=== PATIENT | female | born 1940 | race Asian ===

== ENCOUNTER 2018-02-09 11:38 | Emergency (ER) | payer OTHER ==
[~2018-02-09] VITALS: Ht 157.5 cm; Wt 57.7 kg
[2018-02-09 13:11] VITALS: BP 163/67
== END 2018-02-09 13:13 | disposition home or self-care (01) ==
LOC: ED 12:42
DX: F51.01 Primary insomnia (principal); F41.9 Anxiety disorder, unspecified
CPT/HCPCS: 99281; 99284

== ENCOUNTER 2018-06-13 19:36 | Emergency (ER) | payer OTHER ==
[~2018-06-13] VITALS: Ht 160 cm; Wt 59.3 kg
[2018-06-13] MEDS ORDERED: ATOR10TA9 PO (20:09)
[2018-06-13] MEDS ORDERED: CLON2TAB9 PO (20:09)
[2018-06-13 20:16] LABS: BASOPHILS % (AUTO) 0 % (0-1); EOSINOPHILS # (AUTO) 0.05 x10^3/uL (0-0.4); EOSINOPHILS % (AUTO) 1 % (1-7); LYMPHOCYTES # (AUTO) 0.65 x10^3/uL (1-3.4); LYMPHOCYTES % (AUTO) 7 % (22-44); MD NO; MEAN CORPUSCULAR HEMOGLOBIN 28.7 pg (27.0-34.8); MEAN CORPUSCULAR HGB CONC 34.3 g/dL (32.4-35.8); MEAN CORPUSCULAR VOLUME 83.6 fL (80-100); MEAN PLATELET VOLUME 7.5 fL (7.4-10.4); MONOCYTES # (AUTO) 0.19 x10^3/uL (0.2-0.8); MONOCYTES % (AUTO) 2 % (2-9); NEUTROPHILS # (AUTO) 8.62 x10^3/uL (1.8-6.8); NEUTROPHILS % (AUTO) 91 % (42-75); PLATELET COUNT 270 x10^3/uL (130-400); RED BLOOD COUNT 4.73 x10^6/uL (3.82-5.3); RED CELL DISTRIBUTION WIDTH 14.4 % (9.6-15.2)
[2018-06-13 20:26] LABS: ALANINE AMINOTRANSFERASE 54 U/L (12-78); ALBUMIN 3.4 g/dL (3.4-5.0); ANION GAP 8 mmol/L (5-15); CALCIUM 8.2 mg/dL (8.5-10.1); CHLORIDE 106 mmol/L (98-107); CREATININE 1.15 mg/dL (0.55-1.02)
[2018-06-13 20:28] LABS: ALKALINE PHOSPHATASE 110 U/L (45-117); BILIRUBIN,TOTAL 0.5 mg/dL (0.2-1.0); TOTAL PROTEIN 7.6 g/dL (6.4-8.2)
[2018-06-13] MEDS ORDERED: SODIUM CHLORIDE FLUSH 10ML SYR IVF ONE (20:30)
[2018-06-13] MEDS ORDERED: ACETAMINOPHEN 500 MG TABLET PO ONE (20:30)
[2018-06-13] MEDS ORDERED: IBUPROFEN 200 MG TABLET PO ONE (20:30)
[2018-06-13] MEDS ORDERED: SODIUM CHLORIDE 0.9% 1,000ML IVBOLUS ONE (20:30)
[2018-06-13] MEDS ORDERED: IBUPROFEN 200 MG TABLET ONE (20:36)
[2018-06-13] MEDS ORDERED: ACETAMINOPHEN 500 MG TABLET ONE (20:37)
[2018-06-13 20:47] LABS: MICROSCOPIC INDICATED
[2018-06-13 20:50] LABS: CULTURE INDICATED? YES
[2018-06-13] MEDS ORDERED: CEFTRIAXONE 1,000 MG in SODIUM CHLORIDE 0.9% 50 ML IVPB ONE (21:00)
[2018-06-13] MEDS ORDERED: CEFTRIAXONE PMX 1GM/50ML 50 ML ONE (21:02)
[2018-06-13 22:51] VITALS: BP 121/44
[2018-06-14] MEDS ORDERED: ZOLP10TA5 PO (22:01)
== END 2018-06-13 22:53 | disposition home or self-care (01) ==
LOC: ED 22:02
DX: N10 Acute pyelonephritis (principal); I10 Essential (primary) hypertension; E86.0 Dehydration; M19.90 Unspecified osteoarthritis, unspecified site
CPT/HCPCS: 36415; 80053; 81001; 83605; 85025; 87040; 87077; 87086; 87186; 93005; 96361; 96365; 99285; J0696; J7030

== ENCOUNTER 2018-06-14 13:33 | Inpatient (IN) | payer OTHER ==
[~2018-06-14] VITALS: Ht 160 cm; Wt 62.4 kg
[~2018-06-14 13:33] MED LIST: ATOR10TA9 PO; CLON2TAB9 PO
[2018-06-14] MEDS ORDERED: CEFTRIAXONE PMX 1GM/50ML 50 ML IVPB ONE (15:00)
[2018-06-14] MEDS ORDERED: CEFTRIAXONE PMX 1GM/50ML 50 ML ONE (15:10)
[2018-06-14] MEDS ORDERED: NS + 20MEQ KCL 1,000 ML IV SCH (15:13)
[2018-06-14] MEDS ORDERED: LABETALOL 5MG/ML, 20ML IVPush PRN (15:30)
[2018-06-14] MEDS ORDERED: ONDANSETRON 2MG/ML, 2ML IVPush PRN (15:30)
[2018-06-14] MEDS ORDERED: ZOLPIDEM 5MG TABLET PO PRN (15:30)
[2018-06-14] MEDS ORDERED: ACETAMINOPHEN 325 MG TABLET PO PRN (15:30)
[2018-06-14] MEDS ORDERED: DOCUSATE 100 MG CAPSULE PO PRN (15:30)
[2018-06-14] MEDS ORDERED: IBUPROFEN 600 MG TABLET PO PRN (15:30)
[2018-06-14] MEDS ORDERED: HYDROcodone/APAP 5/325 TABLET PO PRN (15:30)
[2018-06-14] MEDS ORDERED: POLYETHYLENE GLYCOL 17 GM PACKET PO PRN (15:30)
[2018-06-14] MEDS ORDERED: SODIUM CHLORIDE FLUSH 10ML SYR IVF PRN (15:30)
[2018-06-14] MEDS ORDERED: hydrALAzine 20 MG/ML, 1ML IV PRN (15:30)
[2018-06-14] MEDS ORDERED: ENOXAPARIN 40 MG/0.4 ML ONE (16:27)
[2018-06-14] MEDS ORDERED: NS + 20MEQ KCL 1,000 ML IV ONE (16:28)
[2018-06-14] MEDS ORDERED: hydrALAzine 20 MG/ML, 1ML ONE (16:35)
[2018-06-14] MEDS: ENOXAPARIN 40 MG/0.4 ML SQ SCH (16:39)
[2018-06-14] MEDS: CEFTRIAXONE PMX 1GM/50ML 50 ML IV SCH (16:40)
[2018-06-14 17:40] VITALS: BP 194/72
[2018-06-14] MEDS: ENALAPRILAT 1.25 MG/ML, 2ML IV PRN (18:02)
[2018-06-14 18:47] VITALS: BP 167/50
[2018-06-14] MEDS: ATORVASTATIN 10 MG TABLET PO SCH (21:11)
[2018-06-14 21:33] VITALS: BP 194/72
[2018-06-14] MEDS ORDERED: ZOLP10TA5 PO (22:01)
[2018-06-14] MEDS: ZOLPIDEM 5MG TABLET PO PRN (22:19)
[2018-06-15 02:04] VITALS: BP 137/84
[2018-06-15 07:40] VITALS: BP 180/72
[2018-06-15] MEDS: SENNA/DOCUSATE TABLET PO SCH (09:00)
[2018-06-15] MEDS: METOPROLOL TARTRATE 25 MG TABLET PO SCH ×2 (13:25→21:11)
[2018-06-15 15:14] VITALS: BP 174/80
[2018-06-15] MEDS: CEFTRIAXONE PMX 1GM/50ML 50 ML IV SCH (15:19)
[2018-06-15] MEDS: ENALAPRILAT 1.25 MG/ML, 2ML IV PRN ×2 (15:19→21:10)
[2018-06-15] MEDS: ENOXAPARIN 40 MG/0.4 ML SQ SCH (16:18)
[2018-06-15 20:00] VITALS: BP 190/79
[2018-06-15] MEDS: ATORVASTATIN 10 MG TABLET PO SCH (20:57)
[2018-06-15] MEDS: ZOLPIDEM 5MG TABLET PO PRN (21:11)
[2018-06-15 21:50] VITALS: BP 180/64
[2018-06-16 00:29] VITALS: BP 163/67
[2018-06-16 05:38] LABS: ANION GAP 9 mmol/L (5-15); CALCIUM 9.1 mg/dL (8.5-10.1); CHLORIDE 107 mmol/L (98-107)
[2018-06-16 05:39] LABS: CREATININE 0.92 mg/dL (0.55-1.02)
[2018-06-16 07:20] VITALS: BP 168/70
[2018-06-16] MEDS: SENNA/DOCUSATE TABLET PO SCH (09:00)
[2018-06-16] MEDS: METOPROLOL TARTRATE 25 MG TABLET PO SCH ×2 (09:12→20:17)
[2018-06-16] MEDS: LISINOPRIL 5 MG TABLET PO SCH (09:12)
[2018-06-16] MEDS ORDERED: ACYCLOVIR OINT 5%, 15GM TP PRN (10:00)
[2018-06-16 13:45] VITALS: BP 131/74
[2018-06-16] MEDS ORDERED: NEOSPORIN OINT, 15GM TP PRN (14:00)
[2018-06-16] MEDS: CEFTRIAXONE PMX 1GM/50ML 50 ML IV SCH (14:57)
[2018-06-16] MEDS: ENOXAPARIN 40 MG/0.4 ML SQ SCH (15:30)
[2018-06-16 19:50] VITALS: BP 184/78
[2018-06-16] MEDS: ATORVASTATIN 10 MG TABLET PO SCH (20:17)
[2018-06-16] MEDS: ZOLPIDEM 5MG TABLET PO PRN (22:54)
[2018-06-17 00:48] VITALS: BP 146/73
[2018-06-17 07:55] VITALS: BP 128/75
[2018-06-17] MEDS ORDERED: LEVO750T26 PO (08:17)
[2018-06-17] MEDS ORDERED: LISI5TAB7 PO (08:17)
[2018-06-17] MEDS ORDERED: METO25TA35 PO (08:17)
[2018-06-17] MEDS: SENNA/DOCUSATE TABLET PO SCH (09:00)
[2018-06-17] MEDS: METOPROLOL TARTRATE 25 MG TABLET PO SCH (09:00)
[2018-06-17] MEDS: LISINOPRIL 5 MG TABLET PO SCH (09:07)
== END 2018-06-17 10:45 | disposition home or self-care (01) | DRG 690 ==
LOC: SUATTDRO 14:51 → ED 15:34 → EDIP 16:02 → 3NE 17:26 → DCLOUNGE 06-17 10:28
PROVIDERS: ADMIT Family Medicine; ATTEND Family Medicine
DX: N39.0 Urinary tract infection, site not specified (principal); R78.81 Bacteremia; B96.20 Unspecified Escherichia coli [E. coli] as the cause of diseases classified elsewhere; I10 Essential (primary) hypertension; Z83.3 Family history of diabetes mellitus; Z82.49 Family history of ischemic heart disease and other diseases of the circulatory system; Z16.24 Resistance to multiple antibiotics; Z16.11 Resistance to penicillins; Z66 Do not resuscitate; Z88.0 Allergy status to penicillin; Z79.2 Long term (current) use of antibiotics; Z79.899 Other long term (current) drug therapy; M19.90 Unspecified osteoarthritis, unspecified site
CPT/HCPCS: 36415; 80048; 83735; 87040; 96361; 96365; 96372; 96375; G0378; J0696; J1650; J3480; J0360

== ENCOUNTER 2019-07-19 18:31 | Emergency (ER) | payer MEDICARE, OTHER ==
[~2019-07-19] VITALS: Ht 157.5 cm; Wt 58.4 kg
[~2019-07-19 18:31] MED LIST changes: +LEVO750T26 PO; +LISI5TAB7 PO; +METO25TA35 PO; +ZOLP10TA5 PO
[2019-07-19] MEDS ORDERED: IBUPROFEN 600 MG TABLET ONE (19:46)
[2019-07-19] MEDS ORDERED: IBUPROFEN 200 MG TABLET PO ONE (20:00)
[2019-07-19] MEDS ORDERED: DEXAMETHASONE 4 MG TABLET PO ONE (20:30)
[2019-07-19] MEDS ORDERED: DEXAMETHASONE 4 MG TABLET ONE (20:33)
[2019-07-19 20:41] VITALS: BP 182/68
--- NOTE | 2019-07-19 20:43 | NUR ---
Patient refused motrin and decadron. She states she will only take antibiotics.
[2019-07-19 20:44] LABS: RAPID INFLUENZA A Negative (Negative); RAPID INFLUENZA B Negative (Negative)
== END 2019-07-19 21:06 | disposition home or self-care (01) ==
LOC: ED 20:55
DX: R06.00 Dyspnea, unspecified (principal); R05 Cough; J02.9 Acute pharyngitis, unspecified; M79.10 Myalgia, unspecified site; R50.9 Fever, unspecified; I10 Essential (primary) hypertension; M19.90 Unspecified osteoarthritis, unspecified site
CPT/HCPCS: 71046; 87081; 87400; 87880; 93005; 99284

== ENCOUNTER 2019-08-16 15:19 | Emergency (ER) | payer MEDICARE ==
[~2019-08-16] VITALS: Ht 157.5 cm; Wt 57.9 kg
--- NOTE | 2019-08-16 16:45 | NUR ---
UPON INITIAL EVAL, NO EKG NEEDED PER MD ORDERS. PATIENT INITIALLY HYPERTENSIVE BUT TOOK HOME MED LISINOPRIL WHEN ARRIVING, MD NOTIFIED. ASYMPTOMATIC, DENIES ESPITIA, CP, RINGING IN EARS, SOB. UPON DISCHARGING PATIENT, PATIENT WAS COMPLAINING OF HEART PALPITATIONS. EKG DONE AND GIVEN TO MD REAGAN.
--- NOTE | 2019-08-16 17:25 | NUR ---
PATIENT MEDICATED PER EMAR, TOLERATED WELL. CALL LIGHT IN REACH, DENIES NEEDS AT THIS TIME
[2019-08-16 17:52] VITALS: BP 200/75
--- NOTE | 2019-08-16 17:54 | NUR ---
TASK RN: IMPROVEMENT IN BP NOTED. ERP AWARE. OKAY TO DC. PT CONTINUES TO DENY CP/SOB/DIZZINESS/ESPITIA. DC EDUCATION PROVIDED EARLIER BY AMRIK MCDONNELL. PT AMBULATED STEADILY TO DC WITH RN.
== END 2019-08-16 17:57 | disposition home or self-care (01) ==
LOC: ED 17:48
DX: F51.01 Primary insomnia (principal); I10 Essential (primary) hypertension; E78.00 Pure hypercholesterolemia, unspecified
CPT/HCPCS: 93005; 99283

== ENCOUNTER 2020-06-15 10:49 | Emergency (ER) | payer MEDICARE ==
[~2020-06-15] VITALS: Ht 172.7 cm; Wt 61.7 kg
[2020-06-15 11:22] LABS: BASOPHILS % (AUTO) 1 % (0-1); EOSINOPHILS % (AUTO) 0 % (1-7); LYMPHOCYTES % (AUTO) 26 % (22-44); MEAN CORPUSCULAR HEMOGLOBIN 27.2 pg (27.0-34.8); MEAN CORPUSCULAR HGB CONC 33.1 g/dL (32.4-35.8); MEAN PLATELET VOLUME 7.3 fL (7.4-10.4); MONOCYTES % (AUTO) 12 % (2-9); NEUTROPHILS % (AUTO) 62 % (42-75); PLATELET COUNT 205 x10^3/uL (130-400); RED BLOOD COUNT 4.62 x10^6/uL (3.82-5.3); RED CELL DISTRIBUTION WIDTH 14.3 % (9.6-15.2)
[2020-06-15 11:25] LABS: MD NO
--- NOTE | 2020-06-15 11:25 | NUR ---
MED STUDENT AT BS FOR EXAM. PT A&OX4, RESP EVEN & UNLABORED, SPEECH CLEAR, CARDIAC & VS MONITORING INITIATED.
[2020-06-15 11:33] LABS: ALBUMIN 3.3 g/dL (3.4-5.0); ANION GAP 5 mmol/L (5-15); CALCIUM 8.5 mg/dL (8.5-10.1); CHLORIDE 102 mmol/L (98-107)
[2020-06-15 11:39] LABS: ALANINE AMINOTRANSFERASE 33 U/L (12-78); ALKALINE PHOSPHATASE 67 U/L (45-117); BILIRUBIN,TOTAL 0.5 mg/dL (0.2-1.0); CREATININE 1.16 mg/dL (0.55-1.02); TOTAL PROTEIN 7.7 g/dL (6.4-8.2); TROPONIN I < 0.015 ng/mL (0.000-0.045)
[2020-06-15] MEDS ORDERED: SODIUM CHLORIDE FLUSH 10ML SYR IVF ONE (13:00)
--- NOTE | 2020-06-15 13:03 | NUR ---
PT REPORTS SHE FELL 3-4 DAYS AGO AND LANDED ON BUTTOCKS. FELL AGAIN THIS MORNING. REPORTS RECENT CHANGE IN HTN MED FROM LISINOPRIL TO [place]. FRIEND REPORTS PT WAS DIZZY AFTER MEDICATION CHANGE. Addendum: 06/15/20 at 1305 by ALISON HIT HEAD AFTER FALLING 3-4 DAYS AGO; SCABBED ABRASIOIN TO RT FOREHEAD
[2020-06-15 13:07] VITALS: BP 119/43
[2020-06-15] MEDS ORDERED: LOSA50TA14 PO (13:07)
--- NOTE | 2020-06-15 13:09 | NUR ---
Nataly christensen in [facility] - 06/15/[address] IVY AT FOR EXAM
== END 2020-06-15 14:42 | disposition home or self-care (01) ==
LOC: ED 11:35
DX: J15.9 Unspecified bacterial pneumonia (principal); R55 Syncope and collapse; I44.7 Left bundle-branch block, unspecified; I10 Essential (primary) hypertension; E78.00 Pure hypercholesterolemia, unspecified; Z87.891 Personal history of nicotine dependence
CPT/HCPCS: 36415; 70450; 71045; 80053; 83880; 84484; 85025; 93005; 99285